=== PATIENT | female | born 1990 | race Hispanic/Latino ===

== ENCOUNTER 2018-07-24 15:17 | Outpatient (CLI) | payer MEDICAID ==
--- NOTE | 2018-07-24 17:20 | ULT ---
LIMITED LEFT BREAST ULTRASOUND: 07/24/18 PROVIDED CLINICAL HISTORY: Lateral left breast pain. Sonographic interrogation was performed of the lateral left breast from the 12 to 6 o'clock positions . The sonographic appearance of the breast parenchyma in these regions is normal. IMPRESSION: No sonographic abnormality is evident in the lateral aspect of the left breast to explain the patient 's breast pain. Negative imaging findings should not preclude further evaluation of a clinically susp icious abnormality. The patient is referred back to her clinician. POS: [facility]
== END 2018-07-24 15:18 | disposition home or self-care (01) ==
LOC: BICULT 15:17
PROVIDERS: ATTEND Family Medicine
DX: N64.4 Mastodynia (principal)